=== PATIENT | male | born 1965 | race African-American/Black ===

== ENCOUNTER 2022-06-19 10:51 | Inpatient (IN) | payer OTHER ==
[2022-06-19 11:34] VITALS: BMI 26.1
[2022-06-19] MEDS ORDERED: POLYETHYLENE GLYCOL (HEALTHYLAX) 3350 17 GM PACKET PO PRN (12:11)
[2022-06-19] MEDS ORDERED: chlordiazePOXIDE HCL 25 MG CAPSULE PO PRN (12:11)
[2022-06-19] MEDS ORDERED: MAG HYDROX/AL HYDROX/SIMETH 30 ML UNIT-DOSE CUP PO PRN (12:11)
[2022-06-19] MEDS ORDERED: ACETAMINOPHEN 325 MG TABLET (FP) PO PRN ×2 (12:11)
[2022-06-19] MEDS ORDERED: BISMUTH SUBSALICYLATE 524 MG/30 ML PO PRN (12:11)
[2022-06-19] MEDS ORDERED: IBUPROFEN 600 MG TABLET (FP) PO PRN (12:11)
[2022-06-19] MEDS ORDERED: MAGNESIUM HYDROX 2400MG/30ML ORAL SUSPENSION 30 ML CUP PO PRN (12:11)
[2022-06-19] MEDS ORDERED: NALOXONE HCL (KLOXXADO) 8 MG SPRAY NS PRN (12:11)
[2022-06-19] MEDS ORDERED: NICOTINE 10 MG CARTRIDGE (INHALER) IH PRN (12:11)
[2022-06-19] MEDS ORDERED: BENZOCAINE/MENTHOL (CHLORASEPTIC ) LOZENGE MM PRN (12:11)
[2022-06-19] MEDS ORDERED: ONDANSETRON *ODT* 4 MG TABLET SL PRN (12:11)
[2022-06-19] MEDS ORDERED: LOPERAMIDE HCL 2 MG CAPSULE PO PRN (12:11)
[2022-06-19] MEDS ORDERED: IBUPROFEN 400 MG TABLET (FP) PO PRN (12:11)
[2022-06-19] MEDS ORDERED: DICYCLOMINE HCL 10 MG CAPSULE PO PRN (12:11)
[2022-06-19] MEDS ORDERED: chlordiazePOXIDE HCL 25 MG CAPSULE ONE (12:35)
[2022-06-19] MEDS ORDERED: METOPROLOL TARTRATE 25 MG TABLET (FP) ONE (12:45)
[2022-06-19] MEDS: metoPROLOL SUCCINATE 25 MG TAB.SR.24H (FP) PO SCH (12:50)
[2022-06-19] MEDS: PRENATAL VITAMINS W/ FOLIC ACID TABLET (FP) PO SCH (12:51)
[2022-06-19 16:19] LABS: HEMATOCRIT 33.9 % (35.4-49); HEMOGLOBIN 11.8 GM/dL (11.7-16.9); MCH 37.3 pg (25.7-33.7); MCHC 34.8 g/dl (32.0-35.9); MEAN CELL VOLUME 106.9 fl (80-96); MEAN PLT VOLUME 6.7 fl (7.5-11.1); PLATELET COUNT 278 10^3/uL (134-434); RBC 3.17 M/mm3 (4.00-5.60); RDW 18.5 % (11.9-15.9); WHITE BLOOD COUNT 8.6 K/mm3 (4.0-10.0)
[2022-06-19 16:26] LABS: ALBUMIN 3.2 g/dl (3.4-5.0); BLOOD UREA NITROGEN 7.1 mg/dL (7-18); CALCIUM 8.7 mg/dL (8.5-10.1)
[2022-06-19 16:31] LABS: BILIRUBIN,TOTAL 0.4 mg/dL (0.2-1)
[2022-06-19 16:32] LABS: TOT PROT 6.1 g/dl (6.4-8.2)
[2022-06-19] MEDS: chlordiazePOXIDE HCL 25 MG CAPSULE PO SCH ×2 (17:38→22:43)
[2022-06-19] MEDS ORDERED: MELATONIN 5 MG TABLETS PO SCH (22:00)
[2022-06-19] MEDS: THIAMINE HCL 100 MG TABLET (FP) PO SCH (22:43)
[2022-06-19] MEDS: SUVOREXANT 10 MG TABLET PO PRN (22:44)
[2022-06-20] MEDS: chlordiazePOXIDE HCL 25 MG CAPSULE PO SCH ×4 (05:49→22:52)
[2022-06-20] MEDS: CLOPIDOGREL BISULFATE 75 MG TABLET (FP) PO SCH (10:40)
[2022-06-20] MEDS: PRENATAL VITAMINS W/ FOLIC ACID TABLET (FP) PO SCH (10:40)
[2022-06-20] MEDS: ASPIRIN 81 MG CHEWABLE TABLETS PO SCH (10:40)
[2022-06-20] MEDS: PANTOPRAZOLE 40 MG TABLET PO SCH (10:41)
[2022-06-20] MEDS: amLODIPine BESYLATE 5 MG TABLET (FP) PO SCH (10:41)
[2022-06-20] MEDS: METHOCARBAMOL 500 MG TABLET PO PRN (10:41)
[2022-06-20] MEDS: metoPROLOL SUCCINATE 25 MG TAB.SR.24H (FP) PO SCH (10:41)
[2022-06-20] MEDS: POTASSIUM CHLORIDE TABS 20 MEQ TABLET.ER (FP) PO SCH (22:52)
[2022-06-20] MEDS: THIAMINE HCL 100 MG TABLET (FP) PO SCH (22:53)
[2022-06-20] MEDS: SUVOREXANT 10 MG TABLET PO PRN (22:56)
[2022-06-21] MEDS: chlordiazePOXIDE HCL 25 MG CAPSULE PO SCH ×4 (05:38→22:00)
[2022-06-21] MEDS: PANTOPRAZOLE 40 MG TABLET PO SCH (10:43)
[2022-06-21] MEDS: CLOPIDOGREL BISULFATE 75 MG TABLET (FP) PO SCH (10:43)
[2022-06-21] MEDS: METHOCARBAMOL 500 MG TABLET PO PRN (10:43)
[2022-06-21] MEDS: hydrOXYzine PAMOATE 25 MG CAPSULE (FP) PO PRN (10:43)
[2022-06-21] MEDS: POTASSIUM CHLORIDE TABS 20 MEQ TABLET.ER (FP) PO SCH (10:43)
[2022-06-21] MEDS: PRENATAL VITAMINS W/ FOLIC ACID TABLET (FP) PO SCH (10:43)
[2022-06-21] MEDS: amLODIPine BESYLATE 5 MG TABLET (FP) PO SCH (10:43)
[2022-06-21] MEDS: ASPIRIN 81 MG CHEWABLE TABLETS PO SCH (10:43)
[2022-06-21] MEDS: metoPROLOL SUCCINATE 25 MG TAB.SR.24H (FP) PO SCH (10:44)
[2022-06-21] MEDS ORDERED: ALBUTEROL SO4 0.083% IH SOL 2.5 MG/3 ML VIAL.NEB. NEB PRN (12:33)
[2022-06-21] MEDS: ALBUTEROL SO4 HFA INHALER IH PRN ×2 (12:49→21:44)
[2022-06-21] MEDS: LACTULOSE 20 GM/30 ML UDC (FOR ORAL USE ONLY) PO SCH ×2 (13:06→21:46)
[2022-06-21] MEDS ORDERED: POTASSIUM CHLORIDE ORAL LIQUID 20 MEQ/15 ML PO ONE (15:00)
[2022-06-21] MEDS: BUDESONIDE/FORMETEROL FUMARATE 160/4.5 mcg INHALER IH SCH (21:44)
[2022-06-21] MEDS: THIAMINE HCL 100 MG TABLET (FP) PO SCH (21:45)
[2022-06-21] MEDS: SUVOREXANT 10 MG TABLET PO PRN (21:46)
[2022-06-22] MEDS ORDERED: chlordiazePOXIDE HCL 10 MG CAPSULE PO PRN
[2022-06-22] MEDS: chlordiazePOXIDE HCL 10 MG CAPSULE PO SCH ×4 (05:47→22:36)
[2022-06-22] MEDS: LACTULOSE 20 GM/30 ML UDC (FOR ORAL USE ONLY) PO SCH ×3 (05:48→22:36)
[2022-06-22] MEDS: PANTOPRAZOLE 40 MG TABLET PO SCH (10:03)
[2022-06-22] MEDS: METHOCARBAMOL 500 MG TABLET PO PRN (10:03)
[2022-06-22] MEDS: hydrOXYzine PAMOATE 25 MG CAPSULE (FP) PO PRN (10:03)
[2022-06-22] MEDS: CLOPIDOGREL BISULFATE 75 MG TABLET (FP) PO SCH (10:03)
[2022-06-22] MEDS: ASPIRIN 81 MG CHEWABLE TABLETS PO SCH (10:03)
[2022-06-22] MEDS: amLODIPine BESYLATE 5 MG TABLET (FP) PO SCH (10:03)
[2022-06-22] MEDS: BUDESONIDE/FORMETEROL FUMARATE 160/4.5 mcg INHALER IH SCH ×2 (10:04→22:37)
[2022-06-22] MEDS: PRENATAL VITAMINS W/ FOLIC ACID TABLET (FP) PO SCH (10:04)
[2022-06-22] MEDS: metoPROLOL SUCCINATE 25 MG TAB.SR.24H (FP) PO SCH (10:04)
[2022-06-22] MEDS: ALBUTEROL SO4 HFA INHALER IH PRN (14:50)
[2022-06-22] MEDS: THIAMINE HCL 100 MG TABLET (FP) PO SCH (22:36)
[2022-06-23] MEDS: LACTULOSE 20 GM/30 ML UDC (FOR ORAL USE ONLY) PO SCH ×3 (05:32→22:35)
[2022-06-23] MEDS: chlordiazePOXIDE HCL 10 MG CAPSULE PO SCH ×2 (05:32→18:01)
[2022-06-23] MEDS: ASPIRIN 81 MG CHEWABLE TABLETS PO SCH (10:33)
[2022-06-23] MEDS: amLODIPine BESYLATE 5 MG TABLET (FP) PO SCH (10:33)
[2022-06-23] MEDS: METHOCARBAMOL 500 MG TABLET PO PRN (10:33)
[2022-06-23] MEDS: CLOPIDOGREL BISULFATE 75 MG TABLET (FP) PO SCH (10:33)
[2022-06-23] MEDS: hydrOXYzine PAMOATE 25 MG CAPSULE (FP) PO PRN ×2 (10:33→22:36)
[2022-06-23] MEDS: PANTOPRAZOLE 40 MG TABLET PO SCH (10:33)
[2022-06-23] MEDS: metoPROLOL SUCCINATE 25 MG TAB.SR.24H (FP) PO SCH (10:33)
[2022-06-23] MEDS: BUDESONIDE/FORMETEROL FUMARATE 160/4.5 mcg INHALER IH SCH ×2 (10:34→22:35)
[2022-06-23] MEDS: PRENATAL VITAMINS W/ FOLIC ACID TABLET (FP) PO SCH (10:34)
[2022-06-23] MEDS: THIAMINE HCL 100 MG TABLET (FP) PO SCH (22:35)
[2022-06-24] MEDS ORDERED: chlordiazePOXIDE HCL 10 MG CAPSULE PO ONE (05:00)
[2022-06-24] MEDS: LACTULOSE 20 GM/30 ML UDC (FOR ORAL USE ONLY) PO SCH (05:58)
[2022-06-24] MEDS: PRENATAL VITAMINS W/ FOLIC ACID TABLET (FP) PO SCH (09:29)
[2022-06-24] MEDS: PANTOPRAZOLE 40 MG TABLET PO SCH (09:30)
[2022-06-24] MEDS: amLODIPine BESYLATE 5 MG TABLET (FP) PO SCH (09:30)
[2022-06-24] MEDS: metoPROLOL SUCCINATE 25 MG TAB.SR.24H (FP) PO SCH (09:30)
[2022-06-24] MEDS: CLOPIDOGREL BISULFATE 75 MG TABLET (FP) PO SCH (09:30)
[2022-06-24] MEDS: ASPIRIN 81 MG CHEWABLE TABLETS PO SCH (09:30)
[2022-06-24] MEDS: BUDESONIDE/FORMETEROL FUMARATE 160/4.5 mcg INHALER IH SCH (09:31)
[2022-06-24 09:40] VITALS: BP 124/87; PULSE 115; RESP 17; TEMP 96.9
== END 2022-06-24 11:10 | disposition other institution (70) | DRG 897 ==
LOC: YASAS 10:51 → Y6N 12:45
PROVIDERS: ADMIT Allergy & Immunology; ATTEND Surgery
PROC: HZ2ZZZZ Detoxification Services for Substance Abuse Treatment (ICD-10-PCS; principal; 2022-06-19)
DX: F10.230 Alcohol dependence with withdrawal, uncomplicated (principal); F33.1 Major depressive disorder, recurrent, moderate; F12.20 Cannabis dependence, uncomplicated; F17.210 Nicotine dependence, cigarettes, uncomplicated; F20.9 Schizophrenia, unspecified; F10.282 Alcohol dependence with alcohol-induced sleep disorder; F10.24 Alcohol dependence with alcohol-induced mood disorder; E87.6 Hypokalemia; I10 Essential (primary) hypertension; I25.2 Old myocardial infarction; J44.9 Chronic obstructive pulmonary disease, unspecified; R79.89 Other specified abnormal findings of blood chemistry; Z86.73 Personal history of transient ischemic attack (TIA), and cerebral infarction without residual deficits; Z56.0 Unemployment, unspecified
CPT/HCPCS: 36415; 80053; 82140; 84132; 85027; 86780; 93005; 93010; C9803-CS; U0003; U0005

== ENCOUNTER 2022-10-20 14:47 | Inpatient (IN) | payer OTHER ==
[2022-10-20 14:58] VITALS: BMI 26.9
[2022-10-20] MEDS ORDERED: ONDANSETRON *ODT* 4 MG TABLET SL PRN (15:16)
[2022-10-20] MEDS ORDERED: BENZOCAINE/MENTHOL (CHLORASEPTIC ) LOZENGE MM PRN (15:16)
[2022-10-20] MEDS ORDERED: LOPERAMIDE HCL 2 MG CAPSULE PO PRN (15:16)
[2022-10-20] MEDS ORDERED: IBUPROFEN 600 MG TABLET (FP) PO PRN (15:16)
[2022-10-20] MEDS ORDERED: MAG HYDROX/AL HYDROX/SIMETH 30 ML UNIT-DOSE CUP PO PRN (15:16)
[2022-10-20] MEDS ORDERED: BENZONATATE 200 MG CAPSULE PO PRN (15:16)
[2022-10-20] MEDS ORDERED: LORazepam 1 MG TABLET PO PRN (15:16)
[2022-10-20] MEDS ORDERED: ACETAMINOPHEN 325 MG TABLET (FP) PO PRN (15:16)
[2022-10-20] MEDS ORDERED: MAGNESIUM HYDROX 2400MG/30ML ORAL SUSPENSION 30 ML CUP PO PRN (15:16)
[2022-10-20] MEDS ORDERED: POLYETHYLENE GLYCOL (HEALTHYLAX) 3350 17 GM PACKET PO PRN (15:16)
[2022-10-20] MEDS ORDERED: IBUPROFEN 400 MG TABLET (FP) PO PRN (15:16)
[2022-10-20] MEDS ORDERED: guaiFENesin 600 MG TABLET.ER (FP) PO PRN (15:16)
[2022-10-20] MEDS ORDERED: BISMUTH SUBSALICYLATE 262 MG/15 ML BTL PO PRN (15:16)
[2022-10-20] MEDS ORDERED: NICOTINE 10 MG CARTRIDGE (INHALER) IH PRN (15:16)
[2022-10-20] MEDS ORDERED: DICYCLOMINE HCL 10 MG CAPSULE PO PRN (15:16)
[2022-10-20] MEDS ORDERED: NICOTINE POLACRILEX 2 MG GUM BUC PRN (15:27)
[2022-10-20] MEDS ORDERED: ALBUTEROL SO4 HFA INHALER IH PRN (15:27)
[2022-10-20] MEDS ORDERED: NICOTINE 14 MG/24 HOURS TOPICAL PATCH TD PRN (15:27)
[2022-10-20] MEDS: LORazepam 2 MG TABLET PO SCH ×2 (18:17→22:27)
[2022-10-20] MEDS ORDERED: MELATONIN 5 MG TABLETS PO SCH (22:00)
[2022-10-20] MEDS: FAMOTIDINE 20 MG TABLET PO SCH (22:27)
[2022-10-20] MEDS: THIAMINE HCL 100 MG TABLET (FP) PO SCH (22:27)
[2022-10-20] MEDS: BUDESONIDE/FORMETEROL FUMARATE 80/4.5 mcg INHALER IH SCH (22:29)
[2022-10-21] MEDS: LORazepam 2 MG TABLET PO SCH ×4 (06:06→22:13)
[2022-10-21] MEDS: metoPROLOL SUCCINATE 25 MG TAB.SR.24H (FP) PO SCH (10:35)
[2022-10-21] MEDS: FAMOTIDINE 20 MG TABLET PO SCH ×2 (10:35→21:19)
[2022-10-21] MEDS: CLOPIDOGREL BISULFATE 75 MG TABLET (FP) PO SCH (10:35)
[2022-10-21] MEDS: ASPIRIN 81 MG CHEWABLE TABLETS PO SCH (10:35)
[2022-10-21] MEDS: amLODIPine BESYLATE 5 MG TABLET (FP) PO SCH (10:35)
[2022-10-21] MEDS: PRENATAL VITAMINS W/ FOLIC ACID TABLET (FP) PO SCH (10:35)
[2022-10-21] MEDS: BUDESONIDE/FORMETEROL FUMARATE 80/4.5 mcg INHALER IH SCH ×2 (10:35→22:16)
[2022-10-21 12:14] LABS: ALBUMIN 3.1 g/dl (3.4-5.0); BLOOD UREA NITROGEN 9.5 mg/dL (7-18); CALCIUM 9.1 mg/dL (8.5-10.1)
[2022-10-21 12:17] LABS: CREATININE 0.9 mg/dL (0.55-1.3)
[2022-10-21 12:19] LABS: BILIRUBIN,TOTAL 0.4 mg/dL (0.2-1); TOT PROT 6.4 g/dl (6.4-8.2)
[2022-10-21 12:45] LABS: HEMATOCRIT 37.5 % (35.4-49); HEMOGLOBIN 12.8 GM/dL (11.7-16.9); MCH 32.2 pg (25.7-33.7); MCHC 34.1 g/dl (32.0-35.9); MEAN CELL VOLUME 94.2 fl (80-96); MEAN PLT VOLUME 6.9 fl (7.5-11.1); PLATELET COUNT 223 10^3/uL (134-434); RBC 3.98 M/mm3 (4.00-5.60); RDW 18.2 % (11.9-15.9); WHITE BLOOD COUNT 4.5 K/mm3 (4.0-10.0)
[2022-10-21] MEDS: hydrOXYzine PAMOATE 25 MG CAPSULE (FP) PO PRN (13:52)
[2022-10-21] MEDS: METHOCARBAMOL 500 MG TABLET PO PRN (13:53)
[2022-10-21] MEDS: THIAMINE HCL 100 MG TABLET (FP) PO SCH (22:13)
[2022-10-21] MEDS: SUVOREXANT 10 MG TABLET PO PRN (22:14)
[2022-10-22] MEDS: LORazepam 1 MG TABLET PO SCH ×4 (05:41→22:37)
[2022-10-22] MEDS: PRENATAL VITAMINS W/ FOLIC ACID TABLET (FP) PO SCH (10:09)
[2022-10-22] MEDS: metoPROLOL SUCCINATE 25 MG TAB.SR.24H (FP) PO SCH (10:09)
[2022-10-22] MEDS: FAMOTIDINE 20 MG TABLET PO SCH ×2 (10:10→22:37)
[2022-10-22] MEDS: amLODIPine BESYLATE 5 MG TABLET (FP) PO SCH (10:10)
[2022-10-22] MEDS: METHOCARBAMOL 500 MG TABLET PO PRN (10:10)
[2022-10-22] MEDS: ASPIRIN 81 MG CHEWABLE TABLETS PO SCH (10:10)
[2022-10-22] MEDS: BUDESONIDE/FORMETEROL FUMARATE 80/4.5 mcg INHALER IH SCH ×2 (10:10→22:42)
[2022-10-22] MEDS: CLOPIDOGREL BISULFATE 75 MG TABLET (FP) PO SCH (10:10)
[2022-10-22] MEDS ORDERED: POTASSIUM CHLORIDE ORAL LIQUID 20 MEQ/15 ML PO ONE (12:30)
[2022-10-22] MEDS: POTASSIUM CHLORIDE ORAL LIQUID 20 MEQ/15 ML PO SCH (22:37)
[2022-10-22] MEDS: THIAMINE HCL 100 MG TABLET (FP) PO SCH (22:37)
[2022-10-22] MEDS: SUVOREXANT 10 MG TABLET PO PRN (22:40)
[2022-10-23] MEDS ORDERED: LORazepam 0.5 MG TABLET PO PRN
[2022-10-23] MEDS: LORazepam 0.5 MG TABLET PO SCH ×4 (05:55→22:42)
[2022-10-23] MEDS: PRENATAL VITAMINS W/ FOLIC ACID TABLET (FP) PO SCH (10:23)
[2022-10-23] MEDS: amLODIPine BESYLATE 5 MG TABLET (FP) PO SCH (10:23)
[2022-10-23] MEDS: POTASSIUM CHLORIDE ORAL LIQUID 20 MEQ/15 ML PO SCH ×2 (10:23→22:42)
[2022-10-23] MEDS: FAMOTIDINE 20 MG TABLET PO SCH ×2 (10:23→22:42)
[2022-10-23] MEDS: ASPIRIN 81 MG CHEWABLE TABLETS PO SCH (10:23)
[2022-10-23] MEDS: metoPROLOL SUCCINATE 25 MG TAB.SR.24H (FP) PO SCH (10:23)
[2022-10-23] MEDS: CLOPIDOGREL BISULFATE 75 MG TABLET (FP) PO SCH (10:23)
[2022-10-23] MEDS: METHOCARBAMOL 500 MG TABLET PO PRN (10:24)
[2022-10-23] MEDS: BUDESONIDE/FORMETEROL FUMARATE 80/4.5 mcg INHALER IH SCH ×2 (10:24→22:42)
[2022-10-23] MEDS: hydrOXYzine PAMOATE 25 MG CAPSULE (FP) PO PRN (10:24)
[2022-10-23] MEDS: SUVOREXANT 10 MG TABLET PO PRN (22:41)
[2022-10-23] MEDS: THIAMINE HCL 100 MG TABLET (FP) PO SCH (22:42)
[2022-10-24] MEDS ORDERED: LORazepam 0.5 MG TABLET PO ONE (05:00)
[2022-10-24 06:00] VITALS: BP 148/92; PULSE 86; RESP 18; TEMP 97.5
[2022-10-24] MEDS: PRENATAL VITAMINS W/ FOLIC ACID TABLET (FP) PO SCH (09:51)
[2022-10-24] MEDS: POTASSIUM CHLORIDE ORAL LIQUID 20 MEQ/15 ML PO SCH (09:51)
[2022-10-24] MEDS: FAMOTIDINE 20 MG TABLET PO SCH (09:51)
[2022-10-24] MEDS: CLOPIDOGREL BISULFATE 75 MG TABLET (FP) PO SCH (09:51)
[2022-10-24] MEDS: amLODIPine BESYLATE 5 MG TABLET (FP) PO SCH (09:51)
[2022-10-24] MEDS: ASPIRIN 81 MG CHEWABLE TABLETS PO SCH (09:51)
[2022-10-24] MEDS: metoPROLOL SUCCINATE 25 MG TAB.SR.24H (FP) PO SCH (09:51)
[2022-10-24] MEDS: BUDESONIDE/FORMETEROL FUMARATE 80/4.5 mcg INHALER IH SCH (09:52)
== END 2022-10-24 10:01 | disposition home or self-care (01) | DRG 897 ==
LOC: YASAS 14:47 → Y6N 15:43
PROVIDERS: ADMIT Allergy & Immunology; ATTEND Surgery
PROC: HZ2ZZZZ Detoxification Services for Substance Abuse Treatment (ICD-10-PCS; principal; 2022-10-20)
DX: F10.230 Alcohol dependence with withdrawal, uncomplicated (principal); F19.282 Other psychoactive substance dependence with psychoactive substance-induced sleep disorder; F12.20 Cannabis dependence, uncomplicated; F17.210 Nicotine dependence, cigarettes, uncomplicated; F19.24 Other psychoactive substance dependence with psychoactive substance-induced mood disorder; F43.10 Post-traumatic stress disorder, unspecified; I10 Essential (primary) hypertension; I25.2 Old myocardial infarction; Z86.73 Personal history of transient ischemic attack (TIA), and cerebral infarction without residual deficits
CPT/HCPCS: 36415; 80053; 82140; 84132; 85027; 86780; 87811; C9803-CS; U0003; U0005